=== PATIENT | male | born 1980 | race Two or more races ===

== ENCOUNTER 2019-11-16 08:18 | Emergency (ER) | payer MEDICAID ==
[~2019-11-16] VITALS: Ht 12.7 cm; Wt 2.4 kg
[2019-11-16 08:24] VITALS: BP 142/96
[2019-11-16] MEDS ORDERED: IBUPROFEN 800 MG TAB PO ONE (10:00)
== END 2019-11-16 10:08 | disposition home or self-care (01) ==
LOC: ER 08:18
DX: S00.81XA Abrasion of other part of head, initial encounter (principal); M62.838 Other muscle spasm; M54.2 Cervicalgia; V29.9XXA Motorcycle rider (driver) (passenger) injured in unspecified traffic accident, initial encounter; Y93.55 Activity, bike riding; Y92.488 Other paved roadways as the place of occurrence of the external cause; Y99.9 Unspecified external cause status
CPT/HCPCS: 70450; 72125